=== PATIENT | female | born 1960 | race Caucasian/White ===

== ENCOUNTER 2018-11-24 10:45 | Emergency (ER) | payer MEDICAID ==
[~2018-11-24] VITALS: Ht 154.9 cm; Wt 72.0 kg
[~2018-11-24 10:45] MED LIST: CITA40TA12 PO; CLON1TAB PO; LAMO200T3 PO; MORP30CA14; RISP1TAB3 PO; TRAZ-137 PO
--- NOTE | 2018-11-24 11:20 | NUR ---
PT PRESENTING TO ER FOR DIZZINESS AND NAUSEA STARTING THIS AM. PT VERY TEARFUL DURING ASSESSMENT. STATES MOTHER WAS DX WITH VERTIGO AND THEN SOON AFTER . MD AT BEDSIDE, ORDERS RECEIVED. PT PLACED ON ALL MONITORING, VSS. CALL LIGHT WITHIN REACH.
[2018-11-24 11:24] VITALS: BP 113/77
[2018-11-24] MEDS ORDERED: DIAZEPAM 5 MG TABLET ONE (11:26)
[2018-11-24] MEDS ORDERED: DIAZEPAM 5 MG TABLET PO ONE (11:30)
--- NOTE | 2018-11-24 11:30 | NUR ---
TAKEN TO CT
--- NOTE | 2018-11-24 11:51 | NUR ---
BACK FROM CT. LAB AT BEDSIDE. PT MEDICATED PER MAR
[2018-11-24 12:09] LABS: BASOPHILS # (AUTO) 0.04 x10^3/uL (0-0.1); BASOPHILS % (AUTO) 1 % (0-1); EOSINOPHILS # (AUTO) 0.06 x10^3/uL (0-0.4); EOSINOPHILS % (AUTO) 1 % (1-7); LYMPHOCYTES # (AUTO) 1.51 x10^3/uL (1-3.4); LYMPHOCYTES % (AUTO) 18 % (22-44); MD NO; MEAN CORPUSCULAR HEMOGLOBIN 31.7 pg (27.0-34.8); MEAN CORPUSCULAR HGB CONC 33.9 g/dL (32.4-35.8); MEAN CORPUSCULAR VOLUME 93.5 fL (80-100); MONOCYTES # (AUTO) 0.45 x10^3/uL (0.2-0.8); MONOCYTES % (AUTO) 5 % (2-9); NEUTROPHILS # (AUTO) 6.53 x10^3/uL (1.8-6.8); NEUTROPHILS % (AUTO) 76 % (42-75); PLATELET COUNT 219 x10^3/uL (130-400); RED BLOOD COUNT 4.67 x10^6/uL (3.82-5.3); RED CELL DISTRIBUTION WIDTH 13.1 % (9.6-15.2)
--- NOTE | 2018-11-24 12:13 | NUR ---
PT STATES DIZZINESS HAS STARTED TO SUBSIDE, NAUSEA IS GONE. AWAITING LABS AND RECHECK
[2018-11-24 12:17] LABS: ANION GAP 6 mmol/L (5-15); CALCIUM 9.2 mg/dL (8.5-10.1); CHLORIDE 110 mmol/L (98-107)
--- NOTE | 2018-11-24 12:20 | NUR ---
ALL RESULTS BACK AT THIS TIME, CHART UP FOR RECHECK
--- NOTE | 2018-11-24 12:32 | NUR ---
PT AMB IN HALLS PER MD REQUEST, PT TOLERATED WELL. MD UPDATED, AWAITING DISPO
== END 2018-11-24 12:58 | disposition home or self-care (01) ==
LOC: ED 11:50
DX: R42 Dizziness and giddiness (principal); F41.1 Generalized anxiety disorder; E78.00 Pure hypercholesterolemia, unspecified
CPT/HCPCS: 36415; 70450; 80048; 82040; 85025; 93005; 99284